=== PATIENT | female | born 1950 | race Two or more races ===

== ENCOUNTER 2016-08-20 07:32 | Day surgery (SDC) | payer OTHER ==
[~2016-08-20 07:32] MED LIST: BALANCED SALT IRRIG SOLN COMB1 500 ML, VANCOMYCIN FOR BSS PLUS 10 MG, GENTAMICIN SULFAT... IO ONE; VANCOMYCIN FOR CATARACT SURGERY MC ONE
[2016-08-20] MEDS ORDERED: IV LACTATED RINGERS SOLUTION 1,000 ML BAG IV ONE (07:41)
[2016-08-20] MEDS ORDERED: FLURBIPROFEN 0.03% OPHT DROP 2.5 ML BOTTLE ONE (07:53)
[2016-08-20] MEDS ORDERED: CIPROFLOXACIN 0.3% OPHT DROP 2.5 ML BOTTLE ONE (07:53)
[2016-08-20] MEDS ORDERED: TROPICAMIDE 1% OPHT DROP 3 ML BOTTLE ONE (07:53)
[2016-08-20] MEDS ORDERED: CYCLOPENTOLATE 1% OPHT DROP 2 ML BOTTLE ONE (07:54)
[2016-08-20] MEDS ORDERED: PHENYLEPHRINE 2.5% OPHT DROP 2 ML BOTTLE ONE (07:54)
[2016-08-20] MEDS ORDERED: TETRACAINE HCL 0.5% OPHT DROP 2 ML BOTTLE ONE (08:48)
[2016-08-20] MEDS ORDERED: LIDOCAINE-MPF 2% 5 ML VIAL ONE (08:48)
[2016-08-20] MEDS ORDERED: TIMOLOL MALEATE 0.5% OPHT DROP 5 ML BOTTLE ONE (08:48)
[2016-08-20] MEDS ORDERED: LIDOCAINE HCL-MPF 1% 5 ML VIAL ONE (08:48)
[2016-08-20] MEDS ORDERED: NEO/POLYMYX B/DEXAME OPHT OINT 3.5 GM TUBE ONE (08:48)
[2016-08-20] MEDS ORDERED: BUPIVACAINE PF 0.5% 30 ML VIAL ONE (08:49)
[2016-08-20] MEDS ORDERED: ACETYLCHOLINE CHLORIDE 1% OPHT 1 EA KIT ONE (08:49)
[2016-08-20] MEDS ORDERED: BALANCED SALT IRRIG SOLN COMB2 15 ML IRRIG.SOLN ONE (08:49)
[2016-08-20] MEDS ORDERED: EPINEPHRINE 1 MG/1 ML AMP ONE (08:49)
[2016-08-20] MEDS ORDERED: HYALURONIDASE,OVINE 200 UNITS/ML VIAL ONE (08:50)
[2016-08-20] MEDS ORDERED: HYALURONATE SODIUM 8.5 MG/0.85 ML DISP.SYRIN ONE (08:50)
[2016-08-20] MEDS ORDERED: HYALURONATE SODIUM 12.8 MG/0.8 ML DISP.SYRIN ONE (08:50)
[2016-08-20] MEDS ORDERED: FENTANYL CITRATE 100 MCG/2 ML AMPUL ONE (09:31)
[2016-08-20] MEDS ORDERED: BALANCED SALT IRRIG SOLN COMB1 500 ML ONE (10:07)
== END 2016-08-20 11:40 | disposition home or self-care (01) ==
LOC: DS 07:32
PROVIDERS: ATTEND Ophthalmology
DX: H26.9 Unspecified cataract (principal); E11.9 Type 2 diabetes mellitus without complications; I10 Essential (primary) hypertension; M54.5 Low back pain; F41.9 Anxiety disorder, unspecified; E78.1 Pure hyperglyceridemia; Z85.3 Personal history of malignant neoplasm of breast; Z98.890 Other specified postprocedural states
CPT/HCPCS: 71010; A4663; J0171; J1580; J3010; J3370; J3471; J3490; J7030; J7120; J7321; V2632

== ENCOUNTER 2016-09-24 06:30 | Day surgery (SDC) | payer OTHER ==
[2016-09-24] MEDS ORDERED: BALANCED SALT IRRIG SOLN COMB1 500 ML, VANCOMYCIN FOR BSS PLUS 10 MG, GENTAMICIN SULFAT... IO ONE ×4 (07:00)
[2016-09-24] MEDS ORDERED: VANCOMYCIN FOR CATARACT SURGERY MC ONE ×2 (07:00)
[2016-09-24] MEDS ORDERED: TROPICAMIDE 1% OPHT DROP 3 ML BOTTLE ONE (07:33)
[2016-09-24] MEDS ORDERED: CIPROFLOXACIN 0.3% OPHT DROP 2.5 ML BOTTLE ONE ×2 (07:33→07:35)
[2016-09-24] MEDS ORDERED: CYCLOPENTOLATE 1% OPHT DROP 2 ML BOTTLE ONE (07:33)
[2016-09-24] MEDS ORDERED: FLURBIPROFEN 0.03% OPHT DROP 2.5 ML BOTTLE ONE (07:33)
[2016-09-24] MEDS ORDERED: PHENYLEPHRINE 2.5% OPHT DROP 2 ML BOTTLE ONE (07:34)
[2016-09-24] MEDS ORDERED: NEO/POLYMYX B/DEXAME OPHT OINT 3.5 GM TUBE ONE (07:58)
[2016-09-24] MEDS ORDERED: TETRACAINE HCL 0.5% OPHT DROP 2 ML BOTTLE ONE (07:58)
[2016-09-24] MEDS ORDERED: LIDOCAINE-MPF 2% 5 ML VIAL ONE ×2 (07:58→08:05)
[2016-09-24] MEDS ORDERED: TIMOLOL MALEATE 0.5% OPHT DROP 5 ML BOTTLE ONE ×2 (07:58→08:06)
[2016-09-24] MEDS ORDERED: LIDOCAINE HCL-MPF 1% 5 ML VIAL ONE (07:59)
[2016-09-24] MEDS ORDERED: EPINEPHRINE 1 MG/1 ML AMP ONE (08:00)
[2016-09-24] MEDS ORDERED: BALANCED SALT IRRIG SOLN COMB2 15 ML IRRIG.SOLN ONE (08:00)
[2016-09-24] MEDS ORDERED: ACETYLCHOLINE CHLORIDE 1% OPHT 1 EA KIT ONE (08:01)
[2016-09-24] MEDS ORDERED: BUPIVACAINE PF 0.5% 30 ML VIAL ONE (08:02)
[2016-09-24] MEDS ORDERED: HYALURONATE SODIUM 8.5 MG/0.85 ML DISP.SYRIN ONE (08:03)
[2016-09-24] MEDS ORDERED: HYALURONIDASE,OVINE 200 UNITS/ML VIAL ONE ×2 (08:03→08:07)
[2016-09-24] MEDS ORDERED: HYALURONATE SODIUM 12.8 MG/0.8 ML DISP.SYRIN ONE ×2 (08:04→08:07)
[2016-09-24] MEDS ORDERED: FENTANYL CITRATE 100 MCG/2 ML AMPUL ONE (08:26)
[2016-09-24] MEDS ORDERED: BALANCED SALT IRRIG SOLN COMB1 500 ML ONE (08:50)
== END 2016-09-24 10:19 | disposition home or self-care (01) ==
LOC: DS 06:30
PROVIDERS: ATTEND Ophthalmology
DX: H26.9 Unspecified cataract (principal); I10 Essential (primary) hypertension; M54.5 Low back pain; F41.9 Anxiety disorder, unspecified; E11.9 Type 2 diabetes mellitus without complications; Z98.890 Other specified postprocedural states; Z79.899 Other long term (current) drug therapy
CPT/HCPCS: A4663; J0171; J1580; J3010; J3370; J3471; J3490; J7030; J7321; V2632